=== PATIENT | male | born 1955 | race Caucasian/White ===

== ENCOUNTER 2020-01-01 15:07 | Inpatient (IN) | payer OTHER ==
--- NOTE | 2020-01-01 15:17 | PDOC ---
Rapid Medical Evaluation Chief Complaint: Pain, Acute Time Seen by Provider: 01/01/20 15:15 Medical Evaluation: Allergies Allergy/AdvReac Type Severity Reaction Status Date / Time Penicillins Allergy Unknown Verified 01/12/15 08:25 01/01/20 15:16 HPI: 64 y/o M w/ PMH of CAD PE: LLE Swelling ORDERS: Doppler Discharge Disposition - Diagnosis Swelling of lower leg - Discharge Dispostion Condition at time of disposition: Stable - Referrals - Patient Instructions - Post Discharge Activity
--- NOTE | 2020-01-01 16:11 | PDOC ---
History of Present Illness - General Chief Complaint: Pain, Acute Stated Complaint: R/O DVT Time Seen by Provider: 01/01/20 15:15 History Source: Patient Exam Limitations: No Limitations - History of Present Illness Initial Comments: 01/01/20 16:20 HISTORY OF PRESENT ILLNESS: 64-year-old male past medical history of CAD with 1 stent presents emergency department for evaluation of atraumatic left calf swelling starting today. Patient reports he woke up this morning his usual state of health but noted that his leg began to swell after breakfast. Patient was seen by his primary doctor who recommended he come to the emergency department for Doppler to rule out DVT. Patient denies any chest pain, shortness of breath, abdominal pain, nausea or vomiting. Triage heart rate is notable- 120 bpm. No recent travel or sick contacts. PAST MEDICAL HISTORY: See HPI SURGICAL HISTORY: Denies ALLERGIES: Penicillin REVIEW OF SYSTEMS General/Constitutional: Denies fever or chills. Denies weakness, weight change. HEENT: Denies change in vision. Denies ear pain or discharge. Denies sore throat. Cardiovascular: Denies chest pain or shortness of breath. Respiratory: Denies cough, wheezing, or hemoptysis. Gastrointestinal: Denies nausea, vomiting, diarrhea or constipation. Denies rectal bleeding. Genitourinary: Denies dysuria, frequency, or change in urination. Musculoskeletal: See HPI Skin and breasts: Denies rash or easy bruising. Neurologic: Denies headache, vertigo, loss of consciousness, or loss of sensation. Psychiatric: Denies depression or anxiety. Endocrine: Denies increased thirst. Denies abnormal weight change. Hematologic/Lymphatic: Denies anemia, easy bleeding, or history of blood clots. Allergic/Immunologic: Denies hives or skin allergy. Denies latex allergy. PHYSICAL EXAM General Appearance: Well-appearing, appropriately dressed. No apparent distr ess, no intoxication. Respiratory/Chest: Lungs CTAB. No shortness of breath, chest tenderness, resp iratory distress, accessory muscle use. No crackles, rales, rhonchi, stridor, wheezing, dullness Cardiovascular: Tachycardic with rate of 126. S1, S2. No JVD, murmur, bradycardia, tachycardia. Vascular Pulses: Dorsalis-Pedis (R): 2+, Dorsalis-Pedis (L): 2+ Musculoskeletal/Extremities: FROM of all extremities, normal capillary refill. Left calf swollen and tender to light palpation. Pain worse medially distal to left popliteal. Negative Homans sign. Neurovascularly intact. Integumentary: Erythematous with edema present to the left lower extremity worse over the calf. Past History - Medical History Allergies/Adverse Reactions: Allergies Allergy/AdvReac Type Severity Reaction Status Date / Time Penicillins Allergy Unknown Verified 01/12/15 08:25 Home Medications: Ambulatory Orders Aspirin [Ecotrin] 81 mg PO DAILY 01/09/15 Glimepiride 2 mg PO BID 01/09/15 Lisinopril [Prinivil] 2.5 mg PO DAILY 01/09/15 Multivit-Mins/Iron/Folic/Lycop [Centrum Men's Tablet] 1 tab PO DAILY 01/09/15 Simvastatin 40 mg PO DAILY 01/09/15 metFORMIN HCL [Metformin HCl] 1,000 mg PO BID 01/09/15 Meloxicam [Mobic] 15 mg PO DAILY 01/01/20 Pantoprazole Sodium [Protonix] 40 mg PO DAILY 01/01/20 Sitagliptin Phosphate [Januvia] 100 mg PO DAILY 01/01/20 Anemia: No Asthma: No Cancer: No Cardiac Disorders: Yes CVA: No COPD: No CHF: No Dementia: No Diabetes: Yes GI Disorders: No Disorders: No HTN: Yes Hypercholesterolemia: Yes Liver Disease: No Seizures: No Thyroid Disease: No - Surgical History Abdominal Surgery: No Appendectomy: No Cardiac Surgery: Yes (STENT 5 YRS AGO) Cholecystectomy: No Lung Surgery: No Neurologic Surgery: No Orthopedic Surgery: Yes (BILAT HIP) - Immunization History Immunization Up to Date: No - Psycho-Social/Smoking History Smoking History: Never smoked Have you smoked in the past 12 months: No Information on smoking cessation initiated: No - Substance Abuse Hx (Audit-C & DAST Scrn) How often the patient has a drink containing alcohol: Never Score: In Men: 4 or > Positive; In Women: 3 or > Positive: 0 Screen Result (Pos requires Nsg. Audit-10AR): Negative In the last yr the pt used illegal drug/Rx for NonMed reason: No Score: Yes response is considered Positive: 0 Screen Result (Positive result requires Nsg. DAST-10): Negative *Physical Exam - Vital Signs Last Vital Signs Temp Pulse Resp BP Pulse Ox 99.1 F 120 H 16 153/94 99 01/01/20 15:15 01/01/20 15:15 01/01/20 15:15 01/01/20 15:15 01/01/20 15:15 ED Treatment Course - LABORATORY CBC & Chemistry Diagram: 01/01/20 16:50 01/01/20 16:50 Medical Decision Making - Medical Decision Making 01/01/20 16:24 A/P: 64-year-old male with atraumatic left calf swelling starting today Heart rate is concerning. Possibly due to pain but as patient has swelling in his left lower extremity possibly PE. Labs Duplex Dopplers of lower extremities EKG No threshold for chest CT pending results of duplex Dopplers. 01/01/20 16:25 01/01/20 17:00 Rreliminary read of duplex Doppler reveals DVT in the left lower extremity. CT angiogram of the chest to rule out pulmonary embolism. 01/01/20 20:13 EKG sinus rhythm with rate of 105. QTC prolonged at 510 ms. Multiple T wave inversions present of bleeding aVL, V3, V4, V5. Multiple acute emboli are noted within several upper and lower lobe pulmonary arteries. No CT evidence of right heart strain. Extensive atherosclerotic coronary calcifications are noted. 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 01/01/20 20:38 Case was discussed with Dr. Cervantes of interventional radiology who states given the extent severity of the lower extremity DVT and now with bilateral PEs patient may need IVC filter placed patient has been transitioned to oral anticoagulation therapy. No need to open IR at this time for clot retrieval. 01/01/20 20:47 01/01/20 21:51 Case d/w Dr. Severino who accepts patient for [facility]. Discharge - Discharge Information Problems reviewed: Yes Clinical Impression/Diagnosis: Swelling of lower leg, DVT (deep venous thrombosis), Pulmonary embolism Condition: Guarded - Admission Yes - Follow up/Referral - Patient Discharge Instructions - Post Discharge Activity
[2020-01-01 17:35] LABS: BASO % 0.7 % (0-2.0); EOS % 1.1 % (0-4.5); HEMATOCRIT 41.3 % (35.4-49); HEMOGLOBIN 14.3 GM/dL (11.7-16.9); LYMPH % 8.9 % (8-40); MCH 29.9 pg (25.7-33.7); MCHC 34.6 g/dl (32.0-35.9); MEAN CELL VOLUME 86.5 fl (80-96); MEAN PLT VOLUME 8.6 fl (7.5-11.1); MONO % 6.2 % (3.8-10.2); NEUT % 83.1 % (42.8-82.8); PLATELET COUNT 156 K/MM3 (134-434); RBC 4.78 M/mm3 (4.00-5.60); RDW 13.6 % (11.9-15.9); WHITE BLOOD COUNT 8.4 K/mm3 (4.0-10.0)
[2020-01-01 17:44] LABS: INR 1.03 (0.83-1.09); PROTHROMBIN TIME (PATIENT) 12.1 SEC (9.7-13.0)
[2020-01-01 18:06] LABS: ALBUMIN 4.1 g/dl (3.4-5.0); ALK PHOS 96 U/L (45-117); ANION GAP 9 MMOL/L (8-16); BILIRUBIN,TOTAL 1.2 mg/dL (0.2-1); BLOOD UREA NITROGEN 19.6 mg/dL (7-18); CHLORIDE 105 mmol/L (98-107); CO2 26 mmol/L (21-32); GLUCOSE,RANDOM 239 mg/dL (74-106); POTASSIUM 4.4 mmol/L (3.5-5.1); SGOT/AST 7 U/L (15-37); SGPT/ALT 15 U/L (13-61); SODIUM 140 mmol/L (136-145); TOT PROT 7.4 g/dl (6.4-8.2)
[2020-01-01] MEDS ORDERED: LACTATED RINGERS SOLUTION 1000 ML INFUS.BAG IV ONE (19:57)
--- OUTSIDE RECORDS SUMMARY | 2020-01-01 19:59 | XMS ---
:1955 Author Organization [facility] Support Name Relationship Address Phone [employer] Unavailable [address] [facility] [address] UE Unavailable Unavailable Unavailable NISHI COLON MOTHER [address] [facility] [place] [address] Re-disclosure Warning The records that you are about to access may contain information from federally- assisted alcohol or drug abuse programs. If such information is present, then the following federally mandated warning applies: This information has been disclosed to you from records protected by federal confidentiality rules (42 CFR part 2). The federal rules prohibit you from making any further disclosure of this information unless further disclosure is expressly permitted by the written consent of the person to whom it pertains or as otherwise permitted by 42 CFR part 2. A general authorization for the release of medical or other information is NOT sufficient for this purpose. The Federal rules restrict any use of the information to criminally investigate or prosecute any alcohol or drug abuse patient.The records that you are about to access may contain highly sensitive health information, the redisclosure of which is protected by Article 27-F of the [facility] Public Health law. If you continue you may haveaccess to information: Regarding HIV / AIDS; Provided by facilities licensed or operated by the [facility] Office of Mental Health; or Provided by the [facility] Office for People With Developmental Disabilities. If such information is present, then the following [facility] mandated warning applies: This information has been disclosed to you from confidential records which are protected by state law. State law prohibits you from making any further disclosure of this information without the specific written consent of the person to whom it pertains, or as otherwise permitted by law. Any unauthorized further disclosure in violation of state law may result in a fine or prison sentence or both. A general authorization for the release of medical or other information is NOT sufficient authorization for further disclosure. Insurance Providers Payer name Policy type Policy ID Covered Covered alliance party's Policy P cheyanne / Coverage alliance party ID relationship to [employer] Inf ormation type colindres RAFIA W/C [id number] SP [id number] [place] [id number] SP [id number] [facility] [id number] SP [id number]
--- NOTE | 2020-01-01 20:05 | PDOC ---
*Physical Exam - Vital Signs Last Vital Signs Temp Pulse Resp BP Pulse Ox 99.1 F 120 H 16 153/94 99 01/01/20 15:15 01/01/20 15:15 01/01/20 15:15 01/01/20 15:15 01/01/20 15:15 ED Treatment Course - LABORATORY CBC & Chemistry Diagram: 01/01/20 16:50 01/01/20 16:50 - ADDITIONAL ORDERS Additional order review: Laboratory Results 01/01/20 01/01/20 16:50 16:50 PT with INR 12.10 INR 1.03 Sodium 140 Potassium 4.4 Chloride 105 Carbon Dioxide 26 Anion Gap 9 BUN 19.6 H Creatinine 1.0 Est GFR (CKD-EPI)AfAm 91.13 Est GFR (CKD-EPI)NonAf 78.63 Random Glucose 239 H Calcium 9.0 Total Bilirubin 1.2 H AST 7 L ALT 15 Alkaline Phosphatase 96 Creatine Kinase 60 Troponin I < 0.02 Total Protein 7.4 Albumin 4.1 01/01/20 16:50 RBC 4.78 MCV 86.5 MCHC 34.6 RDW 13.6 MPV 8.6 Neutrophils % 83.1 H Lymphocytes % 8.9 Monocytes % 6.2 Eosinophils % 1.1 Basophils % 0.7 Medical Decision Making - Medical Decision Making 01/01/20 20:04 a/p: 64yo male with acute onset of atraumatic calf pain -pt tachy -dvt on ultrasound -cta shows multiple PE -pt will need antiocoags, will need admission 01/01/20 20:06 extensive dvt on ultrasound 01/01/20 20:[address] Caro: recommends formal echo bedside echo does not show Right heart strain trop neg states poss filter placement tomorrow 01/01/20 22:06 pt admitted to [facility] pt updated and agrees with plan bedrest Discharge - Discharge Information Problems reviewed: Yes Clinical Impression/Diagnosis: Swelling of lower leg, DVT (deep venous thrombosis), Pulmonary embolism Condition: Guarded - Admission Yes - Follow up/Referral - Patient Discharge Instructions - Post Discharge Activity
[2020-01-01] MEDS ORDERED: HEPARIN NA (PORCINE) 5,000 UNITS/ML 1ML VIAL IVPUSH ONE (20:09)
[2020-01-01] MEDS ORDERED: HEPARIN NA (PORCINE) 5,000 UNITS/ML 1ML VIAL IVPUSH PRN (20:09)
[2020-01-01] MEDS ORDERED: HEPARIN NA (PORCINE) 5,000 UNITS/ML 1ML VIAL ONE (20:16)
[2020-01-01] MEDS ORDERED: HEPARIN INFUSION - 25,000 UNITS/500 ML INFUS.BAG IVPB ONE (20:18)
[2020-01-01] MEDS: HEPARIN INFUSION - 25,000 UNITS/500 ML INFUS.BAG IVPB SCH (20:33)
--- OUTSIDE RECORDS SUMMARY | 2020-01-01 21:52 | XMS ---
:1955 Author Organization [facility] Support Name Relationship Address Phone [employer] Unavailable [address] [facility] [place] [address] UE Unavailable Unavailable Unavailable NISHI COLON MOTHER [address] [facility] [place] [place] [address] Re-disclosure Warning The records that you are [...] is protected by Article 27-F of the [facility] Public Health law. If you continue you may haveaccess to information: Regarding HIV / AIDS; Provided by facilities licensed or operated by the [facility] Office of Mental Health; or Provided by the [facility] Office for People With Developmental Disabilities. If such information is present, then the following [facility] mandated warning applies: This information has [...] law may result in a fine or mcc sentence or both. A general authorization for the release of medical or other information is NOT sufficient authorization for further disclosure. Insurance Providers Payer name Policy type Policy ID Covered Covered alliance party's Policy P cheyanne / Coverage alliance party ID relationship to [employer] Inf ormation type colindres RAFIA W/C [id number] SP [id number] [place] [id number] SP [id number] [facility] [id number] SP [id number]
--- NOTE | 2020-01-01 23:25 | HP ---
CHIEF COMPLAINT: Leg swelling of one day duration PCP: Forrest Montoya HISTORY OF PRESENT ILLNESS: 64 YO man with Mhx of HTN, HLD, DM, CAD s/p one stent, rotator cuff tear, and cervical DJD (post trauma) who presented to ED from his PCP to rule out DVT. Pt reported that he noticed swelling of his lt leg this morning, mild pain in the calf when moving his foot, so he sought medical attention and visited his PMD. Pt was sent to ED to obtain US doppler and rule out DVT. At ED US doppler was done and revealed; extensive and nearly obstructive lt LE DVT extending from proximal lt superficial femoral vein through the popliteal vein into the posterior tibial vein with minimal or no flow seen. Due to the size of the DVT, CTa was obtained and showed Acute bilateral PE and extensive atherosclerotic CAD. Pt was admitted for further management and placed on heparin drip. Pt denied recent travel, report to be active at home, and denies any complains apart from leg swelling. 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 Denies chest pain, palpitations, no dyspnea, no dizziness. ER course was notable for: (1) imaging showed: Extensive DVT and bilateral PE (2) factor V leiden, protein C & S activity sent (3) heparin drip started Recent Travel: denies PAST MEDICAL HISTORY: see HPI PAST SURGICAL HISTORY: see HPI Social History: Smoking: denies Alcohol: occasional 1-2 beer/week Drugs: denies Allergies Penicillins Allergy (Unknown, Verified 01/12/15 08:25) REACTION A BABY HOME MEDICATIONS: Home Medications Medication Instructions Recorded Aspirin [Ecotrin] 81 mg PO DAILY 01/09/15 Glimepiride 2 mg PO BID 01/09/15 Lisinopril [Prinivil] 2.5 mg PO DAILY 01/09/15 Multivit-Mins/Iron/Folic/Lycop 1 tab PO DAILY 01/09/15 [Centrum Men's Tablet] Simvastatin 40 mg PO DAILY 01/09/15 metFORMIN HCL [Metformin HCl] 1,000 mg PO BID 01/09/15 Meloxicam [Mobic] 15 mg PO DAILY 01/01/20 Pantoprazole Sodium [Protonix] 40 mg PO DAILY 01/01/20 Sitagliptin Phosphate [Januvia] 100 mg PO DAILY 01/01/20 REVIEW OF SYSTEMS CONSTITUTIONAL: System reviewed, all with in normal limits HEENT: System reviewed, all with in normal limitss CARDIOVASCULAR: See HPI. RESPIRATORY: System reviewed, all with in normal limits GASTROINTESTINAL: System reviewed, all with in normal limits GENITOURINARY: System reviewed, all with in normal limits MUSCULOSKELETAL: Lt leg swelling, and mild pain. SKIN: System reviewed, all with in normal limits HEMATOLOGIC/IMMUNOLOGIC: System reviewed, all with in normal limits ENDOCRINE: System reviewed, all with in normal limits NEUROLOGIC: System reviewed, all with in normal limits PSYCHIATRIC: System reviewed, all with in normal limits PHYSICAL EXAMINATION Vital Signs - 24 hr 01/01/20 01/01/20 01/01/20 15:15 20:44 21:39 Temperature 99.1 F 98.5 F Pulse Rate 120 H Respiratory 16 22 H Rate Blood Pressure 153/94 O2 Sat by Pulse 99 98 98 Oximetry (%) GENERAL: Awake, alert, and fully oriented, in no acute distress. HEAD: Normal with no signs of trauma. EYES: Pupils equal, round and reactive to light, extraocular movements intact, sclera anicteric, conjunctiva clear. No lid lag. EARS, NOSE, THROAT: Ears normal, nares patent, oropharynx clear without exudates. Moist mucous membranes. NECK: Normal range of motion, supple without lymphadenopathy, JVD, or masses. LUNGS: Breath sounds equal, clear to auscultation bilaterally. No wheezes, and no crackles. No accessory muscle use. HEART: Regular rate and rhythm, normal S1 and S2 with systolic murmur, rub or gallop. ABDOMEN: Soft, nontender, not distended, normoactive bowel sounds, no guarding, no rebound, no masses. No hepatomegaly or splenomegaly. MUSCULOSKELETAL: Normal range of motion at all joints. No bony deformities or tenderness. No CVA tenderness. LOWER EXTREMITIES: 2+ pulses, warm, well-perfused. lt calf tenderness. + Harrell sign NEUROLOGICAL: Cranial nerves II-XII intact. Normal speech. Normal gait. PSYCHIATRIC: Cooperative. Good eye contact. Appropriate mood and affect. Laboratory Results - last 24 hr 01/01/20 01/01/20 01/01/20 16:50 16:50 16:50 WBC 8.4 RBC 4.78 Hgb 14.3 Hct 41.3 MCV 86.5 MCH 29.9 MCHC 34.6 RDW 13.6 Plt Count 156 MPV 8.6 Absolute Neuts (auto) 7.0 Neutrophils % 83.1 H Lymphocytes % 8.9 Monocytes % 6.2 Eosinophils % 1.1 Basophils % 0.7 Nucleated RBC % 0 PT with INR 12.10 INR 1.03 Sodium 140 Potassium 4.4 Chloride 105 Carbon Dioxide 26 Anion Gap 9 BUN 19.6 H Creatinine 1.0 Est GFR (CKD-EPI)AfAm 91.13 Est GFR (CKD-EPI)NonAf 78.63 Random Glucose 239 H Calcium 9.0 Total Bilirubin 1.2 H AST 7 L ALT 15 Alkaline Phosphatase 96 Creatine Kinase 60 Troponin I < 0.02 Total Protein 7.4 Albumin 4.1 ASSESSMENT/PLAN: 64 YO man with Mhx of HTN, HLD, DM, CAD s/p one stent, rotator cuff tear, and cervical DJD (post trauma) who presented to ED with leg swelling # Extensive DVT, Bilateral PE, unprovoked -hemodynamically stable -started on Heparin drip in ED, follow aPTT, Hg, Platelets -IR consulted for possible IVC filter -factor v leiden, protein C&S sent by ED prior to heparin -will defer the need for further hypercoagulation work up to HemOnc as pt is already on heparin drip now and results can be altered -ECHO to evaluate Rt side of heart -EKG reviewed, some ST/T wave abnormalities without baseline to compare, pt denies chest pain, troponin -ve -will trend troponin and EKG -tele monitoring -HemOnc consult -Pulmonary consult -IR consult HTN DM CAD rotator cuff tear Cervial disc disease DVT prophylaxis -pt already on heparin drip Family Medical History Family History: As Documented Family Hx Coronary Artery Disease: Father ( of [place] age 52) Visit type - Medication Review Med list reviewed for High Risk Meds patients 65 and older: Yes (yes) - Emergency Visit Emergency Visit: Yes ED Registration Date: 01/01/20 Care time: The patient presented to the Emergency Department on the above date and was hospitalized for further evaluation of their emergent condition. - New Patient This patient is new to me today: Yes Date on this admission: 01/01/20 - Critical Care Critical Care patient: No
[2020-01-02 00:52] VITALS: BMI 30.8
[2020-01-02] MEDS: HEPARIN INFUSION - 25,000 UNITS/500 ML INFUS.BAG IVPB SCH ×5 (03:28→22:21)
[2020-01-02] MEDS: INSULIN SLIDING SCALE (NOVOLOG) 1 VIAL SQ SCH ×4 (06:13→21:25)
[2020-01-02 06:42] LABS: BASO % 0.8 % (0-2.0); EOS % 4.2 % (0-4.5); HEMATOCRIT 36.6 % (35.4-49); HEMOGLOBIN 12.6 GM/dL (11.7-16.9); LYMPH % 21.7 % (8-40); MCH 29.2 pg (25.7-33.7); MCHC 34.6 g/dl (32.0-35.9); MEAN CELL VOLUME 84.5 fl (80-96); MEAN PLT VOLUME 8.4 fl (7.5-11.1); MONO % 7.2 % (3.8-10.2); NEUT % 66.1 % (42.8-82.8); PLATELET COUNT 132 K/MM3 (134-434); RBC 4.33 M/mm3 (4.00-5.60); RDW 13.6 % (11.9-15.9); WHITE BLOOD COUNT 6.1 K/mm3 (4.0-10.0)
[2020-01-02 06:54] LABS: INR 1.12 (0.83-1.09); PROTHROMBIN TIME (PATIENT) 13.2 SEC (9.7-13.0)
[2020-01-02 07:11] LABS: ALBUMIN 3.4 g/dl (3.4-5.0); BLOOD UREA NITROGEN 14.4 mg/dL (7-18); CALCIUM 8.3 mg/dL (8.5-10.1); CREATININE 0.8 mg/dL (0.55-1.3); MAGNESIUM 1.9 mg/dL (1.8-2.4); PHOSPHOROUS 3.4 mg/dL (2.5-4.9); POTASSIUM 3.8 mmol/L (3.5-5.1); TOT PROT 6.2 g/dl (6.4-8.2)
[2020-01-02 07:44] LABS: BILIRUBIN,TOTAL 1.3 mg/dL (0.2-1)
--- NOTE | 2020-01-02 08:17 | CONSULT ---
Consultation: REQUESTING PROVIDER: Dr. Kaiser CONSULT REQUEST: We have been asked to medically evaluate this patient for extensive DVT and PE. HISTORY OF PRESENT ILLNESS: 64 y/o M PMHx HTN, HLD, DM, CAD (s/p stent x 1) presents from his PCP to r/o DVT. Pt reports LLE swelling since yesterday morning accompanied by soreness with foot movement and LLE warmth. Patient visited his PCP who referred him to [facility] for Duplex which revealed nearly obstructive LLE DVT. Follow up CTA revealed acute b/l PE without evidence of right heart strain. Patient denies any chest pain or SOB. EKG revealed Sinus tachycardia (VR 105), QTc 510, TWI in V3- V5. Case was discussed with IR (as per ED documentation) who recommends possible IVC filter placement + Echo. Patient was started on Heparin GTT and admitted to Tele. During my interview this AM, patient feels his LE edema has improved. Denies any recent travel, sedentary lifestyle. Denies any FHx of VTE or Cancer. Patient mentions his lost colonoscopy was a few years ago and he was advised to return in 5 years but he is unsure what was found. Denies fevers, chills, nausea, vomiting, diarrhea, constipation, palpitations, dizziness, headache. 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 Additionally he has been on diasbility since sustaining a fall in August that resulted in rotator cuff tear at work. PMHx: As per HPI PSHx: Denies Social: Occassional EtOH, Denies tobacco or drugs FHx: Father with premature CAD (SD age 52) REVIEW OF SYSTEMS: As per HPI PHYSICAL EXAMINATION Vital Signs Temperature 97.3 F L 01/02/20 00:29 Pulse Rate 80 01/02/20 05:00 Respiratory Rate 20 01/02/20 05:00 Blood Pressure 141/71 01/02/20 05:00 O2 Sat by Pulse Oximetry (%) 95 01/02/20 05:00 GENERAL: A&Ox3, NAD HEAD: NCAT EYES: PERRL, EOMI ENT: Moist mucous membranes. NECK: No JVD LUNGS: Diminished breath sounds at the bases, No wheezes, no crackles HEART: Regular rate and rhythm, normal S1 and S2 ABDOMEN: Obese, Soft, nontender, not distended, + bowel sounds, no guarding, no rebound MUSCULOSKELETAL: No CVA tenderness. EXTREMITIES: 2+ pulses, LLE calf tenderness and edema, + Homman sign NEUROLOGICAL: Cranial nerves II-XII intact. Normal speech SKIN: Warm, dry Laboratory Last Values WBC 6.1 K/mm3 (4.0-10.0) 01/02/20 05:40 RBC 4.33 M/mm3 (4.00-5.60) 01/02/20 05:40 Hgb 12.6 GM/dL (11.7-16.9) 01/02/20 05:40 Hct 36.6 % (35.4-49) 01/02/20 05:40 MCV 84.5 fl (80-96) 01/02/20 05:40 MCH 29.2 pg (25.7-33.7) 01/02/20 05:40 MCHC 34.6 g/dl (32.0-35.9) 01/02/20 05:40 RDW 13.6 % (11.9-15.9) 01/02/20 05:40 Plt Count 132 K/MM3 (134-434) L 01/02/20 05:40 MPV 8.4 fl (7.5-11.1) 01/02/20 05:40 Absolute Neuts (auto) 4.0 K/mm3 (1.5-8.0) 01/02/20 05:40 Neutrophils % 66.1 % (42.8-82.8) D 01/02/20 05:40 Lymphocytes % 21.7 % (8-40) D 01/02/20 05:40 Monocytes % 7.2 % (3.8-10.2) 01/02/20 05:40 Eosinophils % 4.2 % (0-4.5) D 01/02/20 05:40 Basophils % 0.8 % (0-2.0) 01/02/20 05:40 Nucleated RBC % 0 % (0-0) 01/02/20 05:40 PT with INR 13.20 SEC (9.7-13.0) H 01/02/20 05:40 INR 1.12 (0.83-1.09) H 01/02/20 05:40 PTT (Actin FS) 46.6 SECONDS (25.2-36.5) H 01/02/20 02:20 Sodium 141 mmol/L (136-145) 01/02/20 05:40 Potassium 3.8 mmol/L (3.5-5.1) 01/02/20 05:40 Chloride 108 mmol/L (98-107) H 01/02/20 05:40 Carbon Dioxide 27 mmol/L (21-32) 01/02/20 05:40 Anion Gap 6 MMOL/L (8-16) L 01/02/20 05:40 BUN 14.4 mg/dL (7-18) 01/02/20 05:40 Creatinine 0.8 mg/dL (0.55-1.3) 01/02/20 05:40 Est GFR (CKD-EPI)AfAm 108.65 01/02/20 05:40 Est GFR (CKD-EPI)NonAf 93.74 01/02/20 05:40 POC Glucometer 137 UNITS (80-120) 01/02/20 05:41 Random Glucose 137 mg/dL (74-106) H 01/02/20 05:40 Calcium 8.3 mg/dL (8.5-10.1) L 01/02/20 05:40 Phosphorus 3.4 mg/dL (2.5-4.9) 01/02/20 05:40 Magnesium 1.9 mg/dL (1.8-2.4) 01/02/20 05:40 Total Bilirubin 1.3 mg/dL (0.2-1) H 01/02/20 05:40 AST 7 U/L (15-37) L 01/02/20 05:40 ALT 13 U/L (13-61) 01/02/20 05:40 Alkaline Phosphatase 73 U/L (45-117) 01/02/20 05:40 Creatine Kinase 60 U/L (26-308) 01/01/20 16:50 Troponin I < 0.02 ng/ml (0.00-0.05) 01/02/20 02:20 Total Protein 6.2 g/dl (6.4-8.2) L 01/02/20 05:40 Albumin 3.4 g/dl (3.4-5.0) 01/02/20 05:40 Triglycerides 122 mg/dL (0-150) 01/02/20 05:40 Cholesterol 165 mg/dL (50-200) 01/02/20 05:40 Total LDL Cholesterol 108 mg/dL (5-100) H 01/02/20 05:40 HDL Cholesterol 47 mg/dL (40-60) 01/02/20 05:40 TSH 2.78 uIU/ml (0.358-3.74) 01/02/20 05:40 Active Medications Acetaminophen (Tylenol -) 650 mg PO Q6H PRN PRN Reason: PAIN LEVEL 1-5 Aspirin (Ecotrin -) 81 mg PO DAILY [facility] Heparin Sodium (Porcine) (Heparin -) 2,300 unit 40 unit/kg (2300 unit) IVPUSH PRN PRN PRN Reason: For aPTT 35 to 45 seconds Heparin Sodium (Porcine) (Heparin -) 4,600 unit 80 unit/kg (4600 unit) IVPUSH PRN PRN PRN Reason: aPTT <35 seconds Heparin Sodium/Dextrose (Heparin Infusion -) 25,000 units in 500 mls @ 20.902 mls/hr IVPB TITR [facility]; Protocol Last Admin: 01/02/20 03:28 Dose: 18 units/kg/hr, 20.902 mls/hr Documented by: Insulin Aspart (Novolog Vial Sliding Scale -) 1 vial SQ ACHS [facility]; Protocol Last Admin: 01/02/20 06:13 Dose: Not Given Documented by: ASSESSMENT/PLAN: 64 y/o M PMHx HTN, HLD, DM, CAD (s/p stent x 1) presents from his PCP to r/o DVT, found to have extensive DVT and b/l PE on imaging, started on AC and admitted to tele. #B/L PE and extensive DVT -Etiology to be determined; Denies any travel, sedentary lifestyle, family or personal hx of Cancer or hypercoagulability however possible he had a high risk lesion found on colonoscopy and was advised to return in 5 years -Continue Heparin gtt, Follow Coags, PLT -Follow Hypercoagulability labs: Protien C, Protien S, Factor V Leiden -Echo to r/o R Heart Strain -Check BNP, Trend Trops -ED discussed case with IR for possible IVC placement -Hemodynamically stable for tele -Will need to obtain record for outpatient cancer screenings; Further hypercoagulability work up to be completed as an outpatient in addition to GI follow up for cancer screening -Vascular surgery consulted for extensive DVT Dispo: We will continue to follow the patient. Thank you for this consultative opportunity. Visit type - Medication Review Med list reviewed for High Risk Meds patients 65 and older: Yes - Emergency Visit Emergency Visit: Yes ED Registration Date: 01/01/20 Care time: The patient presented to the Emergency Department on the above date and was hospitalized for further evaluation of their emergent condition. - New Patient This patient is new to me today: Yes Date on this admission: 01/02/20 - Critical Care Critical Care patient: No ATTENDING PHYSICIAN STATEMENT I saw and evaluated the patient. I reviewed the resident's note and discussed the case with the resident. I agree with the resident's findings and plan as documented. SUBJECTIVE: OBJECTIVE: ASSESSMENT AND PLAN:
[2020-01-02 08:45] LABS: ACTIVATED PTT 39.7 SECONDS (25.2-36.5)
[2020-01-02] MEDS: ASPIRIN COATED 81 MG TABLET.EC PO SCH (09:44)
[2020-01-02] MEDS: HEPARIN NA (PORCINE) 5,000 UNITS/ML 1ML VIAL IVPUSH PRN ×2 (10:10→17:43)
[2020-01-02 11:49] LABS: N-TERMINAL BNP 632.4 pg/ml (5-125)
--- NOTE | 2020-01-02 12:18 | CONSULT ---
- Consultation REQUESTING PROVIDER: Vascular Surgery - Meng Marcos CONSULT REQUEST: We have been asked to surgically evaluate this patient for LLE DVT and bilateral PEs Hospitalist: Ramiro Montoya HPI: Called to eval 64 yo male w/ PMHx as noted below. Patient states he was reading the paper this morning when he happened to notice that his left leg was grossly swollen. Had increasing painwhen he ambulated. Went to see his PCP (Jan) who sent him to [facility] ED for evaluation. US doppler was performed in the ED and revealed extensive/nearly obstructive LLE DVT extending from proximal SFV through the popliteal vein into the posterior tibial vein with minimal or no flow seen. Due to size and extent of DVT a Chest CT performed and bilateral PEs identified. Patient with no contraindications to begin AC. Bolused Heparin and started on drip. Patient admits to prolonged sitting. By his own admission, his LE swelling has decreased significantly since admit to hospital. Denies n/v/f/c, CP, palpitations, SOB, DEVLIN, cough, hemoptysis or trauma * Patient recently seen by his B2B Sales Executive 12/30/19 for pre-op clearance for rotator cuff repair and he was "cleared for surgery". PMHx: HTN, HLD, DM, CAD, Rotator cuff tear, Cervical DJD PSHx: Coronary Stent x1 Home Meds Aspirin [Ecotrin] 81 mg PO DAILY 01/09/15 Glimepiride 2 mg PO BID 01/09/15 Lisinopril [Prinivil] 2.5 mg PO DAILY 01/09/15 Multivit-Mins/Iron/Folic/Lycop 1 tab PO DAILY 01/09/15 [Centrum Men's Tablet] Simvastatin 40 mg PO DAILY 01/09/15 metFORMIN HCL [Metformin HCl] 1,000 mg PO BID 01/09/15 Meloxicam [Mobic] 15 mg PO DAILY 01/01/20 Pantoprazole Sodium [Protonix] 40 mg PO DAILY 01/01/20 Sitagliptin Phosphate [Januvia] 100 mg PO DAILY 01/01/20 Allergies: PCNs ROS: 12 systems reviewed and considered negative except for what's contained in the HPI. PE: GENERAL: A&O. NAD HEAD: Normal with no signs of trauma. EYES: PERRL, sclera anicteric, conjunctiva clear. NECK: Normal ROM, supple without lymphadenopathy, JVD, or masses. LUNGS: Unlabored respirations onroom air. CTA bilat. HEART: RRR ABD: Soft, nontender, not distended, normoactive bowel sounds UE: 2+ pulses, warm, well-perfused. No cyanosis. Cap refill <2 seconds. No peripheral edema. LE: RLE unremarkable. LLE swelling from prox tibia down to ankle. +Calf tenderness. +Emely's. DP/PT 2+. Warm. NEUROLOGICAL: Normal speech, gait not observed. PSYCH: Cooperative. Good eye contact. Appropriate mood and affect. Last Vital Signs Temp Pulse Resp BP Pulse Ox 98.4 F 78 20 144/74 96 01/02/20 10:00 01/02/20 10:00 01/02/20 10:00 01/02/20 10:00 01/02/20 10:00 CBC, BMP 01/02/20 05:40 01/02/20 05:40 INR, PTT INR 1.12 (0.83-1.09) H 01/02/20 05:40 Serology Test 01/01/20 23:05 COVID-19 (JU) Pending Laboratory Test 01/02/20 05:40 Factor V Leiden Pending A/P: 64 yo male admitted with unprovoked LLE DVT and bilateral PEs. -No contraindications to AC. Will need to continue AC as out-patient for the next 6 months. -Cont Hep gtt -Monitor PT/PTT/INR -If bleeding develops, will need IVC Filter -Cont medical management -No surgical intervention -Covid pending; Strict Isolation precautions -HemeOnc f/u -Factor V Leiden/Protein C&S pending Above plan discussed with Dr. Marcos and agrees. Problem List - Problems (1) Bilateral pulmonary embolism Code(s): I26.99 - OTHER PULMONARY EMBOLISM WITHOUT ACUTE COR PULMONALE (2) Left leg DVT Code(s): I82.402 - ACUTE EMBOLISM AND THOMBOS UNSP DEEP VEINS OF L LOW EXTREM (3) Diabetes Code(s): E11.9 - TYPE 2 DIABETES MELLITUS WITHOUT COMPLICATIONS (4) HTN (hypertension) Code(s): I10 - ESSENTIAL (PRIMARY) HYPERTENSION (5) CAD (coronary artery disease) Code(s): I25.10 - ATHSCL HEART DISEASE OF [place] CORONARY ARTERY W/O ANG PCTRS (6) HLD (hyperlipidemia) Code(s): E78.5 - HYPERLIPIDEMIA, UNSPECIFIED Visit type - Case Type Case Type: ED Admission - Emergency Emergency Visit: Yes ED Registration Date: 01/01/20 Care time: The patient presented to the Emergency Department on the above date and was hospitalized for further evaluation of their emergent condition. - New patient This patient is new to me today: Yes Date on this admission: 01/02/20
--- NOTE | 2020-01-02 14:04 | EKG ---
Test Reason : Blood Pressure : / mmHG Vent. Rate : 105 BPM Atrial Rate : 105 BPM P-R Int : 138 ms QRS Dur : 146 ms QT Int : 386 ms P-R-T Axes : 066 000 023 degrees QTc Int : 510 ms SINUS TACHYCARDIA POSSIBLE LEFT ATRIAL ENLARGEMENT RIGHT BUNDLE BRANCH BLOCK ANTEROSEPTAL INFARCT , AGE UNDETERMINED T WAVE ABNORMALITY, CONSIDER LATERAL ISCHEMIA ABNORMAL ECG WHEN COMPARED WITH ECG OF 18-SEP-2008 16:46, RIGHT BUNDLE BRANCH BLOCK IS NOW PRESENT ANTEROSEPTAL INFARCT IS NOW PRESENT Confirmed by ALCIRA VALENZUELA MD ([id number]) on 01/02/2020 2:04:44 PM Referred By: Confirmed By:ALCIRA VALENZUELA MD
--- NOTE | 2020-01-02 14:04 | EKG ---
Test Reason : Blood Pressure : / mmHG Vent. Rate : 082 BPM Atrial Rate : 082 BPM P-R Int : 134 ms QRS Dur : 152 ms QT Int : 430 ms P-R-T Axes : 043 -06 006 degrees QTc Int : 502 ms NORMAL SINUS RHYTHM RIGHT BUNDLE BRANCH BLOCK SEPTAL INFARCT (CITED ON OR BEFORE 01-JAN-2020) ABNORMAL ECG WHEN COMPARED WITH ECG OF 01-JAN-2020 16:55, SERIAL CHANGES OF SEPTAL INFARCT PRESENT Confirmed by ALCIRA VALENZUELA MD ([id number]) on 01/02/2020 2:04:27 PM Referred By: Confirmed By:ALCIRA VALENZUELA MD
--- NOTE | 2020-01-02 16:14 | PN ---
Progress Note, Physician Chief Complaint: EVENTS AND NOTES REVIEWED DENIES CHEST PAIN SOB - Current Medication List Current Medications: Active Medications Acetaminophen (Tylenol -) 650 mg PO Q6H PRN PRN Reason: PAIN LEVEL 1-5 Aspirin (Ecotrin -) 81 mg PO DAILY [facility] Last Admin: 01/02/20 09:44 Dose: 81 mg Documented by: Heparin Sodium (Porcine) (Heparin -) 2,300 unit 40 unit/kg (2300 unit) IVPUSH PRN PRN PRN Reason: For aPTT 35 to 45 seconds Heparin Sodium (Porcine) (Heparin -) 4,600 unit 80 unit/kg (4600 unit) IVPUSH PRN PRN PRN Reason: aPTT <35 seconds Last Admin: 01/02/20 10:10 Dose: 4,120 unit Documented by: Heparin Sodium/Dextrose (Heparin Infusion -) 25,000 units in 500 mls @ 20.902 mls/hr IVPB TITR [facility]; Protocol Last Admin: 01/02/20 10:07 Dose: 21.62 units/kg/hr, 25.1 mls/hr Documented by: Insulin Aspart (Novolog Vial Sliding Scale -) 1 vial SQ [facility]; Protocol Last Admin: 01/02/20 12:04 Dose: Not Given Documented by: - Objective Vital Signs: Vital Signs Temperature 98.2 F 01/02/20 13:58 Pulse Rate 79 01/02/20 13:58 Respiratory Rate 01/02/20 10:00 Blood Pressure 137/67 01/02/20 13:58 O2 Sat by Pulse Oximetry (%) 96 01/02/20 10:00 Constitutional: Yes: Mild Distress Cardiovascular: Yes: Regular Rate and Rhythm Respiratory: Yes: WNL Gastrointestinal: Yes: WNL Genitourinary: Yes: Incontinence Musculoskeletal: Yes: Muscle Weakness Edema: Yes Edema: LLE: 2+ Peripheral Pulses WNL: Yes Integumentary: Yes: Erythema Wound/Incision: Yes: Clean/Dry Neurological: Yes: WNL ...Motor Strength: LLE Psychiatric: Yes: WNL Labs: CBC, BMP 01/02/20 05:40 01/02/20 05:40 INR, PTT INR 1.12 (0.83-1.09) H 01/02/20 05:40 Problem List - Problems (1) CAD (coronary artery disease) Code(s): I25.10 - ATHSCL HEART DISEASE OF [place] CORONARY ARTERY W/O ANG PCTRS (2) Diabetes Code(s): E11.9 - TYPE 2 DIABETES MELLITUS WITHOUT COMPLICATIONS (3) HLD (hyperlipidemia) Code(s): E78.5 - HYPERLIPIDEMIA, UNSPECIFIED (4) HTN (hypertension) Code(s): I10 - ESSENTIAL (PRIMARY) HYPERTENSION (5) Left leg DVT Code(s): I82.402 - ACUTE EMBOLISM AND THOMBOS UNSP DEEP VEINS OF L LOW EXTREM (6) Bilateral pulmonary embolism Code(s): I26.99 - OTHER PULMONARY EMBOLISM WITHOUT ACUTE COR PULMONALE Assessment/Plan IV HEPARIN WILL NEED DVT FILTER IVC PULM/HEM CONSULT TRANSITION TO [facility] PO OOB TO CHAIR CHECK CBC STOOL GUAC HEME WORKUP ON CARDIOLIPIN/FACTOR V
[2020-01-02] MEDS: metFORMIN HCL 500 MG TABLET (FP) PO SCH (16:52)
--- NOTE | 2020-01-02 16:54 | ECHO ---
Name: DARCY COLON Exam:Adult Echocardiogram Study Date: 01/02/2020 03:32 PM Age: 64 yrs Reason For Study: No indication given. Height: 72 in Weight: 128 lb BSA: 1.8 m2 MMode/2D Measurements & Calculations RVDd: 3.7 cm Ao root diam: 3.3 cm IVSd: 0.98 cm LA dimension: 3.5 cm LVIDd: 5.7 cm ACS: 1.5 cm LVIDs: 4.7 cm LVPWd: 0.90 cm EDV(Teich): 159.3 ml EPSS: 1.9 cm ESV(Teich): 100.6 ml LVOT diam: 2.0 cm LVLd ap4: 7.9 cm EDV(MOD-sp4): 147.0 ml LVLs ap4: 6.5 cm ESV(MOD-sp4): 81.0 ml SV(MOD-sp4): 66.0 ml TAPSE: 2.3 cm RV S Shant: 19.5 cm/sec Doppler Measurements & Calculations MV E max shant: 82.1 cm/sec Ao V2 max: 172.4 cm/sec MV A max shant: 125.2 cm/sec Ao max P.9 mmHg MV E/A: 0.66 Ao V2 mean: 109.5 cm/sec MV dec time: 0.26 sec Ao mean P.7 mmHg Ao V2 VTI: 30.1 cm MADELEINE(I,D): 2.2 cm2 MADELEINE(V,D): 1.9 cm2 LV V1 max P.2 mmHg SV(LVOT): 64.7 ml LV V1 mean P.4 mmHg LV V1 max: 103.0 cm/sec LV V1 mean: 72.4 cm/sec LV V1 VTI: 20.9 cm TR max shant: 216.7 cm/sec PA V2 max: 78.7 cm/sec TR max P.0 mmHg PA max P.5 mmHg PA acc slope: 708.4 cm/sec2 PA acc time: 0.11 sec Med Peak E' Shant: 4.5 cm/sec PA pr(Accel): 29.9 mmHg Med E/e': 18.3 Lat Peak E' Shant: 6.8 cm/sec Lat E/e': 12.0 Procedure A two-dimensional transthoracic echocardiogram with color flow and Doppler was performed. The study w as technically difficult with many images being suboptimal in quality. Left Ventricle The left ventricle is normal in size. Left ventricular systolic function is moderately reduced. Eject ion Fraction = 40-45%. There is moderate global hypokinesis of the left ventricle. Right Ventricle The right ventricle is normal in size and function. Atria Normal left and right atrial size and function. Mitral Valve There is no mitral regurgitation noted. Tricuspid Valve There is trace tricuspid regurgitation. There was insufficient TR detected to calculate RV systolic p ressure. Aortic Valve No hemodynamically significant valvular aortic stenosis. No aortic regurgitation is present. Pulmonic Valve There is no pulmonic valvular regurgitation. Great Vessels The aortic root is normal size. Pericardium/Pleura There is no pericardial effusion. Interpretation Summary The study was technically difficult with many images being suboptimal in quality. Left ventricular systolic function is moderately reduced. There is moderate global hypokinesis of the left ventricle. The left ventricle is normal in size. The right ventricle is normal in size and function. There is trace tricuspid regurgitation. MD Dereje Dunbar 01/02/2020 04:53 PM
--- NOTE | 2020-01-02 16:57 | PN ---
Teaching Attending Note Name of Resident: Elissa Alberto ATTENDING PHYSICIAN STATEMENT I saw and evaluated the patient. I reviewed the resident's note and discussed the case with the resident. I agree with the resident's findings and plan as documented. 64M HTN, HLD, DM presented from PCP for left leg edema and pain in calf. Doppler notable for extensive and nearly obstructive LE left DVT extending from proximal LT superficial femoral vein through the popliteal vein into posterior tibial vein with minimal/no flow to be seen. CTA notable for b/l PE; he was started on heparin gtt and admitted for further workup. At this time would not recommend hypercoagulability workup as it will not slubber frame changer and patient does not have any extensive family hx of clotting disorders. Would also pursue outpatient GI follow up as patient has missed his screening cscope and should be up to date on cancer screening. He should be seen by vascular surgery as his clot burden in left lower extremity is high. Can be eventually transitioned to DOAC once no acute interventions are planned. Will need anticoagulation for 3-6months.
[2020-01-02] MEDS ORDERED: PT OWN MED DRAWER 7, Y5N ONE (18:00)
[2020-01-02] MEDS ORDERED: HEPARIN NA (PORCINE) 5,000 UNITS/ML 1ML VIAL IVPUSH PRN ×4 (18:26→18:42)
[2020-01-02] MEDS ORDERED: HEPARIN INFUSION - 25,000 UNITS/500 ML INFUS.BAG IVPB SCH (18:30)
[2020-01-02] MEDS: ACETAMINOPHEN 325 MG TABLET (FP) PO PRN (19:52)
[2020-01-02] MEDS ORDERED: diphenhydrAMINE HCL 25 MG CAPSULE (FP) PO ONE (19:52)
[2020-01-02] MEDS: ATORVASTATIN CA 20 MG TABLET (FP) PO SCH (21:25)
[2020-01-03] MEDS ORDERED: PT OWN MED DRAWER 7, Y5N ONE (06:19)
[2020-01-03] MEDS: metFORMIN HCL 500 MG TABLET (FP) PO SCH (06:20)
[2020-01-03] MEDS: INSULIN SLIDING SCALE (NOVOLOG) 1 VIAL SQ SCH ×4 (06:20→22:15)
[2020-01-03] MEDS: GLIMEPIRIDE 2 MG TABLET PO SCH (06:22)
[2020-01-03 06:53] LABS: HEMATOCRIT 36.3 % (35.4-49); HEMOGLOBIN 12.6 GM/dL (11.7-16.9); MCH 29.2 pg (25.7-33.7); MCHC 34.7 g/dl (32.0-35.9); MEAN CELL VOLUME 84.1 fl (80-96); MEAN PLT VOLUME 8.3 fl (7.5-11.1); PLATELET COUNT 130 K/MM3 (134-434); RBC 4.31 M/mm3 (4.00-5.60); RDW 13.5 % (11.9-15.9); WHITE BLOOD COUNT 4.7 K/mm3 (4.0-10.0)
--- NOTE | 2020-01-03 07:26 | PN ---
Progress Note, Physician - Current Medication List Current Medications: Active Medications Acetaminophen (Tylenol -) 650 mg PO Q6H PRN PRN Reason: PAIN LEVEL 1-5 Last Admin: 01/02/20 19:52 Dose: 650 mg Documented by: Aspirin (Ecotrin -) 81 mg PO DAILY [facility] Last Admin: 01/02/20 09:44 Dose: 81 mg Documented by: Atorvastatin Calcium (Lipitor -) 20 mg PO HS [facility] Last Admin: 01/02/20 21:25 Dose: 20 mg Documented by: Glimepiride (Amaryl -) 2 mg PO DAILY@0700 [facility] Last Admin: 01/03/20 06:22 Dose: 2 mg Documented by: Heparin Sodium (Porcine) (Heparin -) 4,100 unit 40 unit/kg (4100 unit) IVPUSH PRN PRN PRN Reason: For aPTT 35 to 45 seconds Heparin Sodium (Porcine) (Heparin -) 8,300 unit 80 unit/kg (8300 unit) IVPUSH PRN PRN PRN Reason: aPTT <35 seconds Heparin Sodium/Dextrose (Heparin Infusion -) 25,000 units in 500 mls @ 37.166 mls/hr IVPB TITR [facility]; Protocol Last Admin: 01/02/20 22:21 Dose: 13.27 units/kg/hr, 27.4 mls/hr Documented by: Insulin Aspart (Novolog Vial Sliding Scale -) 1 vial SQ ACHS [facility]; Protocol Last Admin: 01/03/20 06:20 Dose: Not Given Documented by: Lisinopril (Prinivil) 2.5 mg PO DAILY [facility] Metformin HCl (Glucophage -) 500 mg PO BID@0700,1630 [facility] Last Admin: 01/03/20 06:20 Dose: Not Given Documented by: Pantoprazole Sodium (Protonix -) 40 mg PO DAILY [facility] Sitagliptin Phosphate (Januvia -) 100 mg PO DAILY@0700 [facility] Last Admin: 01/03/20 06:22 Dose: 100 mg Documented by: - Objective Vital Signs: Vital Signs Temperature 98.2 F 01/02/20 21:00 Pulse Rate 71 01/03/20 05:00 Respiratory Rate 20 01/03/20 05:00 Blood Pressure 131/63 01/03/20 05:00 O2 Sat by Pulse Oximetry (%) 97 01/02/20 19:54 Labs: CBC, BMP 01/02/20 05:40 INR, PTT INR 1.12 (0.83-1.09) H 01/02/20 05:40 Problem List - Problems (1) CAD (coronary artery disease) Code(s): I25.10 - ATHSCL HEART DISEASE OF [place] CORONARY ARTERY W/O ANG PCTRS (2) Diabetes Code(s): E11.9 - TYPE 2 DIABETES MELLITUS WITHOUT COMPLICATIONS (3) HLD (hyperlipidemia) Code(s): E78.5 - HYPERLIPIDEMIA, UNSPECIFIED (4) HTN (hypertension) Code(s): I10 - ESSENTIAL (PRIMARY) HYPERTENSION (5) Left leg DVT Code(s): I82.402 - ACUTE EMBOLISM AND THOMBOS UNSP DEEP VEINS OF L LOW EXTREM (6) Bilateral pulmonary embolism Code(s): I26.99 - OTHER PULMONARY EMBOLISM WITHOUT ACUTE COR PULMONALE
[2020-01-03] MEDS: LISINOPRIL 5 MG TABLET PO SCH (09:10)
[2020-01-03] MEDS: PANTOPRAZOLE 40 MG TABLET PO SCH (09:10)
[2020-01-03] MEDS: ASPIRIN COATED 81 MG TABLET.EC PO SCH (09:13)
--- NOTE | 2020-01-03 11:02 | PN ---
Progress Note, Physician Chief Complaint: AWAKE ALERT FEELS PAIN IN LEFT LEG BETTER DENIES SOB - Current Medication List Current Medications: Active Medications Acetaminophen (Tylenol -) 650 mg PO Q6H PRN PRN Reason: PAIN LEVEL 1-5 Last Admin: 01/02/20 19:52 Dose: 650 mg Documented by: Aspirin (Ecotrin -) 81 mg PO DAILY [facility] Last Admin: 01/03/20 09:13 Dose: 81 mg Documented by: Atorvastatin Calcium (Lipitor -) 20 mg PO HS [facility] Last Admin: 01/02/20 21:25 Dose: 20 mg Documented by: Glimepiride (Amaryl -) 2 mg PO DAILY@0700 [facility] Last Admin: 01/03/20 06:22 Dose: 2 mg Documented by: Heparin Sodium (Porcine) (Heparin -) 4,100 unit 40 unit/kg (4100 unit) IVPUSH PRN PRN PRN Reason: For aPTT 35 to 45 seconds Heparin Sodium (Porcine) (Heparin -) 8,300 unit 80 unit/kg (8300 unit) IVPUSH PRN PRN PRN Reason: aPTT <35 seconds Heparin Sodium/Dextrose (Heparin Infusion -) 25,000 units in 500 mls @ 37.166 mls/hr IVPB TITR [facility]; Protocol Last Admin: 01/02/20 22:21 Dose: 13.27 units/kg/hr, 27.4 mls/hr Documented by: Insulin Aspart (Novolog Vial Sliding Scale -) 1 vial SQ ACHS [facility]; Protocol Last Admin: 01/03/20 06:20 Dose: Not Given Documented by: Lisinopril (Prinivil) 2.5 mg PO DAILY [facility] Last Admin: 01/03/20 09:10 Dose: 2.5 mg Documented by: Metformin HCl (Glucophage -) 500 mg PO BID@0700,1630 [facility] Last Admin: 01/03/20 06:20 Dose: Not Given Documented by: Pantoprazole Sodium (Protonix -) 40 mg PO DAILY [facility] Last Admin: 01/03/20 09:10 Dose: 40 mg Documented by: Sitagliptin Phosphate (Januvia -) 100 mg PO DAILY@0700 [facility] Last Admin: 01/03/20 06:22 Dose: 100 mg Documented by: - Objective Vital Signs: Vital Signs Temperature 98 F 01/03/20 09:00 Pulse Rate 110 H 01/03/20 09:00 Respiratory Rate 01/03/20 09:00 Blood Pressure 155/87 01/03/20 09:00 O2 Sat by Pulse Oximetry (%) 98 01/03/20 09:00 Constitutional: Yes: No Distress Cardiovascular: Yes: Regular Rate and Rhythm Respiratory: Yes: WNL Gastrointestinal: Yes: WNL Genitourinary: Yes: WNL Extremities: Yes: Other Edema: LLE: 2+ Integumentary: Yes: Erythema Neurological: Yes: WNL Labs: CBC, BMP 01/03/20 06:10 01/02/20 05:40 INR, PTT INR 1.12 (0.83-1.09) H 01/02/20 05:40 Problem List - Problems (1) CAD (coronary artery disease) Code(s): I25.10 - ATHSCL HEART DISEASE OF [place] CORONARY ARTERY W/O ANG PCTRS (2) Diabetes Code(s): E11.9 - TYPE 2 DIABETES MELLITUS WITHOUT COMPLICATIONS (3) HLD (hyperlipidemia) Code(s): E78.5 - HYPERLIPIDEMIA, UNSPECIFIED (4) HTN (hypertension) Code(s): I10 - ESSENTIAL (PRIMARY) HYPERTENSION (5) Left leg DVT Code(s): I82.402 - ACUTE EMBOLISM AND THOMBOS UNSP DEEP VEINS OF L LOW EXTREM (6) Bilateral pulmonary embolism Code(s): I26.99 - OTHER PULMONARY EMBOLISM WITHOUT ACUTE COR PULMONALE Assessment/Plan IV HEPARIN WILL NEED DVT FILTER IVC PULM/HEM CONSULT TRANSITION TO [facility] OOB TO CHAIR CHECK CBC STOOL GUAC HEME WORKUP ON CARDIOLIPIN/FACTOR V
--- NOTE | 2020-01-03 13:15 | PN ---
Progress Note (short form) - Note Progress Note: 64 M, HTN, HLD, DM, CAD (s/p stent x 1). Admitted via the ER due to LLE swelling x 1 to 2 days. Reports he lost his job and his activity level has been lower than normal but has still been relatively active. Found to have a LLE DVT and bilateral PE. No personal or family history of VTE. No travel history or immobilization. ECH: No evidence of right heart strain. PSHx: Denies Social: Occassional EtOH, Denies tobacco or drugs FHx: Father with premature CAD (NE age 52) Intake & Output 12/31/19 01/01/20 01/02/20 01/03/20 23:59 23:59 23:59 23:59 Intake Total 1217 324 Output Total 940 Balance 277 324 Weight 128 lb 227 lb 9.6 oz 225 lb 3.2 oz Last Vital Signs Temp Pulse Resp BP Pulse Ox 98 F 110 H 20 155/87 98 01/03/20 09:00 01/03/20 09:00 01/03/20 09:00 01/03/20 09:00 01/03/20 09:00 Active Medications Acetaminophen (Tylenol -) 650 mg PO Q6H PRN PRN Reason: PAIN LEVEL 1-5 Last Admin: 01/02/20 19:52 Dose: 650 mg Documented by: Aspirin (Ecotrin -) 81 mg PO DAILY [facility] Last Admin: 01/03/20 09:13 Dose: 81 mg Documented by: Atorvastatin Calcium (Lipitor -) 20 mg PO HS [facility] Last Admin: 01/02/20 21:25 Dose: 20 mg Documented by: Glimepiride (Amaryl -) 2 mg PO DAILY@0700 [facility] Last Admin: 01/03/20 06:22 Dose: 2 mg Documented by: Heparin Sodium (Porcine) (Heparin -) 4,100 unit 40 unit/kg (4100 unit) IVPUSH PRN PRN PRN Reason: For aPTT 35 to 45 seconds Heparin Sodium (Porcine) (Heparin -) 8,300 unit 80 unit/kg (8300 unit) IVPUSH PRN PRN PRN Reason: aPTT <35 seconds Heparin Sodium/Dextrose (Heparin Infusion -) 25,000 units in 500 mls @ 37.166 mls/hr IVPB TITR [facility]; Protocol Last Admin: 01/02/20 22:21 Dose: 13.27 units/kg/hr, 27.4 mls/hr Documented by: Insulin Aspart (Novolog Vial Sliding Scale -) 1 vial SQ ACHS [facility]; Protocol Last Admin: 01/03/20 12:01 Dose: Not Given Documented by: Lisinopril (Prinivil) 2.5 mg PO DAILY [facility] Last Admin: 01/03/20 09:10 Dose: 2.5 mg Documented by: Metformin HCl (Glucophage -) 500 mg PO BID@0700,1630 [facility] Last Admin: 01/03/20 06:20 Dose: Not Given Documented by: Pantoprazole Sodium (Protonix -) 40 mg PO DAILY [facility] Last Admin: 01/03/20 09:10 Dose: 40 mg Documented by: Sitagliptin Phosphate (Januvia -) 100 mg PO DAILY@0700 [facility] Last Admin: 01/03/20 06:22 Dose: 100 mg Documented by: GENERAL: A&Ox3, NAD HEAD: NCAT EYES: PERRL, EOMI ENT: Moist mucous membranes. NECK: No JVD LUNGS: Diminished breath sounds at the bases, No wheezes, no crackles HEART: Regular rate and rhythm, normal S1 and S2 ABDOMEN: Obese, Soft, nontender, not distended, + bowel sounds, no guarding, no rebound MUSCULOSKELETAL: No CVA tenderness. EXTREMITIES: 2+ pulses, LLE calf tenderness and edema, + Homman sign NEUROLOGICAL: Non-focal SKIN: Warm, dry Laboratory Results - last 24 hr 01/01/20 01/02/20 01/02/20 23:05 05:40 15:45 WBC RBC Hgb Hct MCV MCH MCHC RDW Plt Count MPV PTT (Actin FS) 39.7 H POC Glucometer Hemoglobin A1c % 7.0 H COVID-19 (JU) Not detected 01/02/20 01/02/20 01/02/20 17:34 20:54 21:10 WBC RBC Hgb Hct MCV MCH MCHC RDW Plt Count MPV PTT (Actin FS) 66.4 H POC Glucometer 127 208 Hemoglobin A1c % COVID-19 (JU) 01/03/20 01/03/20 01/03/20 05:50 06:10 06:10 WBC 4.7 RBC 4.31 Hgb 12.6 Hct 36.3 MCV 84.1 MCH 29.2 MCHC 34.7 RDW 13.5 Plt Count 130 L MPV 8.3 PTT (Actin FS) 47.2 H POC Glucometer 172 Hemoglobin A1c % COVID-19 (JU) 01/03/20 01/03/20 11:56 12:18 WBC RBC Hgb Hct MCV MCH MCHC RDW Plt Count MPV PTT (Actin FS) 45.9 H POC Glucometer 124 Hemoglobin A1c % COVID-19 (JU) ASSESSMENT/PLAN: Acute LLE DVT & Bilateral PE : Seems unprovoked. There is no evidence of Right heart strain on CT imaging or ECHO HTN HLD DM CAD (s/p stent x 1) As no Right heart strain: Little benefit from IR guided procedures Noted IV Heparin Can start DOAC Will need age appropriate cancer screening No smoking Heme evaluation noted Will follow Thank you. Dr Singletary
[2020-01-03] MEDS ORDERED: INSULIN (NOVOLOG) ASPART 100 UNITS/ML 10ML VIAL ONE (17:32)
[2020-01-03] MEDS: HEPARIN INFUSION - 25,000 UNITS/500 ML INFUS.BAG IVPB SCH (19:45)
[2020-01-03] MEDS: ATORVASTATIN CA 20 MG TABLET (FP) PO SCH (21:36)
[2020-01-04] MEDS ORDERED: PT OWN MED DRAWER 7, Y5N ONE ×2 (06:32→16:04)
[2020-01-04] MEDS: GLIMEPIRIDE 2 MG TABLET PO SCH (06:57)
[2020-01-04] MEDS: INSULIN SLIDING SCALE (NOVOLOG) 1 VIAL SQ SCH ×3 (06:58→22:50)
--- NOTE | 2020-01-04 07:12 | PN ---
Progress Note, Physician History of Present Illness: pulmonary alert,comfortable oob-chair,-sob,less L lower ext pain - Current Medication List Current Medications: Active Medications Acetaminophen (Tylenol -) 650 mg PO Q6H PRN PRN Reason: PAIN LEVEL 1-5 Last Admin: 01/02/20 19:52 Dose: 650 mg Documented by: Aspirin (Ecotrin -) 81 mg PO DAILY [facility] Last Admin: 01/03/20 09:13 Dose: 81 mg Documented by: Atorvastatin Calcium (Lipitor -) 20 mg PO HS [facility] Last Admin: 01/03/20 21:36 Dose: 20 mg Documented by: Glimepiride (Amaryl -) 2 mg PO DAILY@0700 [facility] Last Admin: 01/04/20 06:57 Dose: 2 mg Documented by: Heparin Sodium (Porcine) (Heparin -) 4,100 unit 40 unit/kg (4100 unit) IVPUSH PRN PRN PRN Reason: For aPTT 35 to 45 seconds Heparin Sodium (Porcine) (Heparin -) 8,300 unit 80 unit/kg (8300 unit) IVPUSH PRN PRN PRN Reason: aPTT <35 seconds Heparin Sodium/Dextrose (Heparin Infusion -) 25,000 units in 500 mls @ 37.166 mls/hr IVPB TITR [facility]; Protocol Last Admin: 01/03/20 19:45 Dose: 13.27 units/kg/hr, 27.4 mls/hr Documented by: Insulin Aspart (Novolog Vial Sliding Scale -) 1 vial SQ ACHS [facility]; Protocol Last Admin: 01/04/20 06:58 Dose: Not Given Documented by: Lisinopril (Prinivil) 2.5 mg PO DAILY [facility] Last Admin: 01/03/20 09:10 Dose: 2.5 mg Documented by: Metformin HCl (Glucophage -) 500 mg PO BID@0700,1630 [facility] Last Admin: 01/03/20 06:20 Dose: Not Given Documented by: Pantoprazole Sodium (Protonix -) 40 mg PO DAILY [facility] Last Admin: 01/03/20 09:10 Dose: 40 mg Documented by: Sitagliptin Phosphate (Januvia -) 100 mg PO DAILY@0700 [facility] Last Admin: 01/04/20 06:57 Dose: 100 mg Documented by: - Objective Vital Signs: Vital Signs Temperature 98.5 F 01/04/20 05:27 Pulse Rate 81 01/04/20 05:27 Respiratory Rate 20 01/04/20 05:27 Blood Pressure 108/59 L 01/04/20 05:27 O2 Sat by Pulse Oximetry (%) 98 01/03/20 21:00 Constitutional: Yes: Well Nourished, Calm Eyes: Yes: WNL HENT: Yes: WNL Neck: Yes: WNL Cardiovascular: Yes: Regular Rate and Rhythm, S1, S2 Respiratory: Yes: CTA Bilaterally Gastrointestinal: Yes: Normal Bowel Sounds, Soft Extremities: Yes: Erythema, Other (LLE SWELLING) Edema: No Labs: CBC, BMP Assessment/Plan Problem List - Problems (1) CAD (coronary artery disease) Code(s): I25.10 - ATHSCL HEART DISEASE OF [place] CORONARY ARTERY W/O ANG PCTRS (2) Diabetes Code(s): E11.9 - TYPE 2 DIABETES MELLITUS WITHOUT COMPLICATIONS (3) HLD (hyperlipidemia) Code(s): E78.5 - HYPERLIPIDEMIA, UNSPECIFIED (4) HTN (hypertension) Code(s): I10 - ESSENTIAL (PRIMARY) HYPERTENSION (5) Left leg DVT Code(s): I82.402 - ACUTE EMBOLISM AND THOMBOS UNSP DEEP VEINS OF L LOW EXTREM (6) Bilateral pulmonary embolism Code(s): I26.99 - OTHER PULMONARY EMBOLISM WITHOUT ACUTE COR PULMONALE Assessment/Plan IV HEPARIN TRANSITION TO [facility] OOB TO CHAIR CHECK CBC STOOL GUAIC HEME WORKUP FOR HYPERCOAGULABLE STATE DR MILLER
[2020-01-04 07:53] LABS: HEMATOCRIT 34.9 % (35.4-49); MCHC 34.4 g/dl (32.0-35.9); MEAN CELL VOLUME 84.4 fl (80-96); MEAN PLT VOLUME 8.7 fl (7.5-11.1); PLATELET COUNT 138 K/MM3 (134-434); RBC 4.14 M/mm3 (4.00-5.60); RDW 13.5 % (11.9-15.9); WHITE BLOOD COUNT 5.3 K/mm3 (4.0-10.0)
--- NOTE | 2020-01-04 10:38 | PN ---
Progress Note, Physician Chief Complaint: DVT LLE PE History of Present Illness: Previous notes and events reviewed awake and alert NAD denies chest pain or palpitations denies SOB or dyspnea on exertion - Current Medication List Current Medications: Active Medications Acetaminophen (Tylenol -) 650 mg PO Q6H PRN PRN Reason: PAIN LEVEL 1-5 Last Admin: 01/02/20 19:52 Dose: 650 mg Documented by: Aspirin (Ecotrin -) 81 mg PO DAILY [facility] Last Admin: 01/03/20 09:13 Dose: 81 mg Documented by: Atorvastatin Calcium (Lipitor -) 20 mg PO HS [facility] Last Admin: 01/03/20 21:36 Dose: 20 mg Documented by: Glimepiride (Amaryl -) 2 mg PO DAILY@0700 [facility] Last Admin: 01/04/20 06:57 Dose: 2 mg Documented by: Heparin Sodium (Porcine) (Heparin -) 4,100 unit 40 unit/kg (4100 unit) IVPUSH PRN PRN PRN Reason: For aPTT 35 to 45 seconds Heparin Sodium (Porcine) (Heparin -) 8,300 unit 80 unit/kg (8300 unit) IVPUSH PRN PRN PRN Reason: aPTT <35 seconds Heparin Sodium/Dextrose (Heparin Infusion -) 25,000 units in 500 mls @ 37.166 mls/hr IVPB TITR [facility]; Protocol Last Admin: 01/03/20 19:45 Dose: 13.27 units/kg/hr, 27.4 mls/hr Documented by: Insulin Aspart (Novolog Vial Sliding Scale -) 1 vial SQ ACHS [facility]; Protocol Last Admin: 01/04/20 06:58 Dose: Not Given Documented by: Lisinopril (Prinivil) 2.5 mg PO DAILY [facility] Last Admin: 01/03/20 09:10 Dose: 2.5 mg Documented by: Metformin HCl (Glucophage -) 500 mg PO BID@0700,1630 [facility] Last Admin: 01/03/20 06:20 Dose: Not Given Documented by: Pantoprazole Sodium (Protonix -) 40 mg PO DAILY [facility] Last Admin: 01/03/20 09:10 Dose: 40 mg Documented by: Sitagliptin Phosphate (Januvia -) 100 mg PO DAILY@0700 [facility] Last Admin: 01/04/20 06:57 Dose: 100 mg Documented by: - Objective Vital Signs: Vital Signs Temperature 98.5 F 01/04/20 05:27 Pulse Rate 81 01/04/20 05:27 Respiratory Rate 20 01/04/20 05:27 Blood Pressure 108/59 L 01/04/20 05:27 O2 Sat by Pulse Oximetry (%) 98 01/03/20 21:00 Constitutional: Yes: No Distress, Calm Eyes: Yes: Conjunctiva Clear Cardiovascular: Yes: Regular Rate and Rhythm Respiratory: Yes: Regular, CTA Bilaterally Gastrointestinal: Yes: Normal Bowel Sounds, Soft Musculoskeletal: Yes: WNL Extremities: Yes: WNL Edema: Yes (LLE) Neurological: Yes: Alert, Oriented Psychiatric: Yes: Alert, Oriented Labs: CBC, BMP 01/04/20 06:20 01/02/20 05:40 INR, PTT INR 1.12 (0.83-1.09) H 01/02/20 05:40 Problem List - Problems (1) Bilateral pulmonary embolism Assessment/Plan: Pulmonary on board Vascular Study LLE shows extensive nearly obstructive LLE DVT extending from the proximal left superficial femoral vein through the popliteal vein with minimal to no flow seen Chest CT shows acute bilateral PE pending Factor V Leiden and Protein S lab result Will discontinue Heparin drip Start on Eliquis 10mg BID x 7 days then will start on ELiquis 5mg BID and continue Code(s): I26.99 - OTHER PULMONARY EMBOLISM WITHOUT ACUTE COR PULMONALE (2) DVT (deep venous thrombosis) Assessment/Plan: Pulmonary on board Vascular Study LLE shows extensive nearly obstructive LLE DVT extending from the proximal left superficial femoral vein through the popliteal vein with minimal to no flow seen Chest CT shows acute bilateral PE pending Factor V Leiden and Protein S lab result Will discontinue Heparin drip Start on Eliquis 10mg BID x 7 days then will start on ELiquis 5mg BID and continue Code(s): I82.409 - ACUTE EMBOLISM AND THOMBOS UNSP DEEP VN UNSP LOWER EXTREMITY (3) Diabetes Assessment/Plan: Endocrinology on board Diabetic diet BGM q6h Amaryl, Metformin, Januvia ISS HgA1c 7.0% Code(s): E11.9 - TYPE 2 DIABETES MELLITUS WITHOUT COMPLICATIONS (4) HLD (hyperlipidemia) Assessment/Plan: Atorvastatin Code(s): E78.5 - HYPERLIPIDEMIA, UNSPECIFIED (5) HTN (hypertension) Assessment/Plan: Lisinopril monitor BP q4h Code(s): I10 - ESSENTIAL (PRIMARY) HYPERTENSION Assessment/Plan see problem list
[2020-01-04] MEDS: ASPIRIN COATED 81 MG TABLET.EC PO SCH (10:46)
[2020-01-04] MEDS: LISINOPRIL 5 MG TABLET PO SCH (10:46)
[2020-01-04] MEDS: PANTOPRAZOLE 40 MG TABLET PO SCH (10:46)
[2020-01-04] MEDS: ACETAMINOPHEN 325 MG TABLET (FP) PO PRN (16:16)
[2020-01-04] MEDS: ATORVASTATIN CA 20 MG TABLET (FP) PO SCH (22:50)
[2020-01-04] MEDS: APIXABAN 5 MG TABLET PO SCH (22:50)
[2020-01-05 06:58] LABS: HEMATOCRIT 35.4 % (35.4-49); HEMOGLOBIN 12.3 GM/dL (11.7-16.9); MCH 29.4 pg (25.7-33.7); MCHC 34.6 g/dl (32.0-35.9); MEAN PLT VOLUME 8.3 fl (7.5-11.1); PLATELET COUNT 146 K/MM3 (134-434); RBC 4.17 M/mm3 (4.00-5.60); RDW 13.5 % (11.9-15.9); WHITE BLOOD COUNT 5.8 K/mm3 (4.0-10.0)
[2020-01-05 07:24] LABS: ALBUMIN 3.4 g/dl (3.4-5.0); BLOOD UREA NITROGEN 14.2 mg/dL (7-18); CALCIUM 8.7 mg/dL (8.5-10.1); CREATININE 0.8 mg/dL (0.55-1.3)
[2020-01-05 07:26] LABS: BILIRUBIN,TOTAL 1.2 mg/dL (0.2-1); TOT PROT 6.1 g/dl (6.4-8.2)
[2020-01-05] MEDS ORDERED: PT OWN MED DRAWER 7, Y5N ONE (08:18)
[2020-01-05] MEDS: INSULIN SLIDING SCALE (NOVOLOG) 1 VIAL SQ SCH (08:19)
[2020-01-05] MEDS: GLIMEPIRIDE 2 MG TABLET PO SCH (08:28)
--- NOTE | 2020-01-05 09:42 | PN ---
Progress Note, Physician - Current Medication List Current Medications: Active Medications Acetaminophen (Tylenol -) 650 mg PO Q6H PRN PRN Reason: PAIN LEVEL 1-5 Last Admin: 01/04/20 16:16 Dose: 650 mg Documented by: Apixaban (Eliquis -) 10 mg PO BID [facility] Stop: 01/11/20 21:59 Last Admin: 01/04/20 22:50 Dose: 10 mg Documented by: Aspirin (Ecotrin -) 81 mg PO DAILY [facility] Last Admin: 01/04/20 10:46 Dose: 81 mg Documented by: Atorvastatin Calcium (Lipitor -) 20 mg PO HS [facility] Last Admin: 01/04/20 22:50 Dose: 20 mg Documented by: Glimepiride (Amaryl -) 2 mg PO DAILY@0700 [facility] Last Admin: 01/05/20 08:28 Dose: 2 mg Documented by: Insulin Aspart (Novolog Vial Sliding Scale -) 1 vial SQ [facility]; Protocol Last Admin: 01/05/20 08:19 Dose: Not Given Documented by: Lisinopril (Prinivil) 2.5 mg PO DAILY [facility] Last Admin: 01/04/20 10:46 Dose: 2.5 mg Documented by: Metformin HCl (Glucophage -) 500 mg PO BID@0700,1630 [facility] Last Admin: 01/03/20 06:20 Dose: Not Given Documented by: Pantoprazole Sodium (Protonix -) 40 mg PO DAILY [facility] Last Admin: 01/04/20 10:46 Dose: 40 mg Documented by: Sitagliptin Phosphate (Januvia -) 100 mg PO DAILY@0700 [facility] Last Admin: 01/05/20 08:20 Dose: 100 mg Documented by: - Objective Vital Signs: Vital Signs Temperature 97.8 F 01/05/20 06:00 Pulse Rate 69 01/05/20 06:00 Respiratory Rate 20 01/05/20 06:00 Blood Pressure 119/66 01/05/20 06:00 O2 Sat by Pulse Oximetry (%) 94 L 01/05/20 06:00 Labs: CBC, BMP 01/05/20 06:03 01/05/20 06:03 INR, PTT INR 1.12 (0.83-1.09) H 01/02/20 05:40 Problem List - Problems (1) Bilateral pulmonary embolism Code(s): I26.99 - OTHER PULMONARY EMBOLISM WITHOUT ACUTE COR PULMONALE (2) DVT (deep venous thrombosis) Code(s): I82.409 - ACUTE EMBOLISM AND THOMBOS UNSP DEEP VN UNSP LOWER EXTREMITY (3) Diabetes Code(s): E11.9 - TYPE 2 DIABETES MELLITUS WITHOUT COMPLICATIONS (4) HLD (hyperlipidemia) Code(s): E78.5 - HYPERLIPIDEMIA, UNSPECIFIED (5) HTN (hypertension) Code(s): I10 - ESSENTIAL (PRIMARY) HYPERTENSION
[2020-01-05] MEDS: APIXABAN 5 MG TABLET PO SCH (09:53)
[2020-01-05] MEDS: PANTOPRAZOLE 40 MG TABLET PO SCH (09:53)
[2020-01-05] MEDS: ASPIRIN COATED 81 MG TABLET.EC PO SCH (09:53)
[2020-01-05] MEDS: LISINOPRIL 5 MG TABLET PO SCH (09:53)
--- NOTE | 2020-01-05 11:21 | DS ---
Physical Examination Vital Signs: Vital Signs Temperature 97.8 F 01/05/20 06:00 Pulse Rate 69 01/05/20 06:00 Respiratory Rate 20 01/05/20 06:00 Blood Pressure 119/66 01/05/20 06:00 O2 Sat by Pulse Oximetry (%) 94 L 01/05/20 06:00 Findings/Remarks: Patient is alert and oriented x 3, NAD. Denies chest pain or palpitations. Denies SOB or dyspnea on exertion. Constitutional: Yes: No Distress, Calm Eyes: Yes: Conjunctiva Clear HENT: Yes: Atraumatic Cardiovascular: Yes: Regular Rate and Rhythm Respiratory: Yes: Regular, CTA Bilaterally Gastrointestinal: Yes: Normal Bowel Sounds, Soft Musculoskeletal: Yes: WNL Extremities: Yes: Calf Tenderness (LLE) Edema: Yes (LLE) Neurological: Yes: Alert, Oriented Psychiatric: Yes: Alert, Oriented Labs: CBC, BMP 01/05/20 06:03 01/05/20 06:03 Laboratory Last Values WBC 5.8 K/mm3 (4.0-10.0) 01/05/20 06:03 RBC 4.17 M/mm3 (4.00-5.60) 01/05/20 06:03 Hgb 12.3 GM/dL (11.7-16.9) 01/05/20 06:03 Hct 35.4 % (35.4-49) 01/05/20 06:03 MCV 85.0 fl (80-96) 01/05/20 06:03 MCH 29.4 pg (25.7-33.7) 01/05/20 06:03 MCHC 34.6 g/dl (32.0-35.9) 01/05/20 06:03 RDW 13.5 % (11.9-15.9) 01/05/20 06:03 Plt Count 146 K/MM3 (134-434) 01/05/20 06:03 MPV 8.3 fl (7.5-11.1) 01/05/20 06:03 Absolute Neuts (auto) 4.0 K/mm3 (1.5-8.0) 01/02/20 05:40 Neutrophils % 66.1 % (42.8-82.8) D 01/02/20 05:40 Lymphocytes % 21.7 % (8-40) D 01/02/20 05:40 Monocytes % 7.2 % (3.8-10.2) 01/02/20 05:40 Eosinophils % 4.2 % (0-4.5) D 01/02/20 05:40 Basophils % 0.8 % (0-2.0) 01/02/20 05:40 Nucleated RBC % 0 % (0-0) 01/02/20 05:40 PT with INR 13.20 SEC (9.7-13.0) H 01/02/20 05:40 INR 1.12 (0.83-1.09) H 01/02/20 05:40 PTT (Actin FS) 32.3 SECONDS (25.2-36.5) 01/05/20 06:03 Sodium 140 mmol/L (136-145) 01/05/20 06:03 Potassium 4.0 mmol/L (3.5-5.1) 01/05/20 06:03 Chloride 106 mmol/L (98-107) 01/05/20 06:03 Carbon Dioxide 27 mmol/L (21-32) 01/05/20 06:03 Anion Gap 7 MMOL/L (8-16) L 01/05/20 06:03 BUN 14.2 mg/dL (7-18) 01/05/20 06:03 Creatinine 0.8 mg/dL (0.55-1.3) 01/05/20 06:03 Est GFR (CKD-EPI)AfAm 108.65 01/05/20 06:03 Est GFR (CKD-EPI)NonAf 93.74 01/05/20 06:03 POC Glucometer 132 UNITS (80-120) 01/05/20 05:07 Random Glucose 144 mg/dL (74-106) H 01/05/20 06:03 Hemoglobin A1c % 7.0 % (4.2-6.3) H 01/02/20 05:40 Calcium 8.7 mg/dL (8.5-10.1) 01/05/20 06:03 Phosphorus 3.4 mg/dL (2.5-4.9) 01/02/20 05:40 Magnesium 1.9 mg/dL (1.8-2.4) 01/02/20 05:40 Total Bilirubin 1.2 mg/dL (0.2-1) H 01/05/20 06:03 AST 15 U/L (15-37) 01/05/20 06:03 ALT 18 U/L (13-61) 01/05/20 06:03 Alkaline Phosphatase 73 U/L (45-117) 01/05/20 06:03 Creatine Kinase 60 U/L (26-308) 01/01/20 16:50 Troponin I < 0.02 ng/ml (0.00-0.05) 01/02/20 02:20 B-Natriuretic Peptide 632.4 pg/ml (5-125) H 01/02/20 05:40 Total Protein 6.1 g/dl (6.4-8.2) L 01/05/20 06:03 Albumin 3.4 g/dl (3.4-5.0) 01/05/20 06:03 Triglycerides 122 mg/dL (0-150) 01/02/20 05:40 Cholesterol 165 mg/dL (50-200) 01/02/20 05:40 Total LDL Cholesterol 108 mg/dL (5-100) H 01/02/20 05:40 HDL Cholesterol 47 mg/dL (40-60) 01/02/20 05:40 TSH 2.78 uIU/ml (0.358-3.74) 01/02/20 05:40 Stool Occult Blood Negative (NEGATIVE) 01/04/20 09:25 COVID-19 (JU) Not detected (Not Detected) 01/01/20 23:05 Discharge Summary Problems reviewed: Yes Reason For Visit: DEEP VEIN THROMBOSIS (DVT) PULMONARY EMBOLISM Current Active Problems Bilateral pulmonary embolism (Acute) CAD (coronary artery disease) (Acute) DVT (deep venous thrombosis) (Acute) Diabetes (Acute) HLD (hyperlipidemia) (Acute) HTN (hypertension) (Acute) Left leg DVT (Acute) Pulmonary embolism (Acute) Swelling of lower leg (Acute) Hospital Course: Patient is a 64 y/o male that was sent to [facility] ER for complaints of pain and swelling to LLE. In ER Vascular US LLE done and shows extensive nearly obstructive LLE DVT extending from the proximal left superficial femoral vein through the popliteal vein with minimal to no flow seen. Due to extent of thrombus in LLE a Chest CT scan was ordered and showed acute bilateral PE. Patient was started on Heparin drip and Pulmonary was consulted. He tolerated Heparin drip and was later started on Eliquis 10mg PO BID on 01/04/20. He had not other acute events since admission and is cleared for discharge. Condition: Guarded - Instructions Diet, Activity, Other Instructions: Patient will be discharged home on ELiquis 10mg PO BID x 6 days. After 6 days start on 5mg twice a day. Follow up with PCP 48hrs after discharge Follow up with Pulmonary Dr Echeverria Instructed to monitor for s/s of bleeding. Instructed that if fall and hits head due to being on blood thinners he will need to go to ER for further evaluation. Return to ER if develop severe pain, chest pain, respiratory distress Referrals: Ramiro Montoya MD [Primary Care Provider] - Disposition: HOME - Home Medications Comprehensive Discharge Medication List: Ambulatory Orders Aspirin [Ecotrin] 81 mg PO DAILY 01/09/15 Glimepiride 2 mg PO BID 01/09/15 Lisinopril [Prinivil] 2.5 mg PO DAILY 01/09/15 Multivit-Mins/Iron/Folic/Lycop [Centrum Men's Tablet] 1 tab PO DAILY 01/09/15 Simvastatin 40 mg PO DAILY 01/09/15 metFORMIN HCL [Metformin HCl] 1,000 mg PO BID 01/09/15 Meloxicam [Mobic] 15 mg PO DAILY 01/01/20 Pantoprazole Sodium [Protonix] 40 mg PO DAILY 01/01/20 Sitagliptin Phosphate [Januvia] 100 mg PO DAILY 01/01/20
--- NOTE | 2020-01-05 11:23 | PN ---
Progress Note (short form) - Note Progress Note: PULMONARY Breathing better. Still with left leg pain but able to ambulate. Vital Signs Period Temp Pulse Resp BP Sys/Kaplan Pulse Ox Last 24 Hr 97 F-98.7 F 69-87 18-20 112-153/66-82 94-99 Gen: NAD at rest Heart: RRR Lung: decreased breath sounds at the bases Abd: soft, nontender Ext: no edema CBC, BMP 01/05/20 06:03 01/05/20 06:03 Active Medications Acetaminophen (Tylenol -) 650 mg PO Q6H PRN PRN Reason: PAIN LEVEL 1-5 Last Admin: 01/04/20 16:16 Dose: 650 mg Documented by: Apixaban (Eliquis -) 10 mg PO BID [facility] Stop: 01/11/20 21:59 Last Admin: 01/05/20 09:53 Dose: 10 mg Documented by: Aspirin (Ecotrin -) 81 mg PO DAILY [facility] Last Admin: 01/05/20 09:53 Dose: 81 mg Documented by: Atorvastatin Calcium (Lipitor -) 20 mg PO HS [facility] Last Admin: 01/04/20 22:50 Dose: 20 mg Documented by: Glimepiride (Amaryl -) 2 mg PO DAILY@0700 [facility] Last Admin: 01/05/20 08:28 Dose: 2 mg Documented by: Insulin Aspart (Novolog Vial Sliding Scale -) 1 vial SQ [facility]; Protocol Last Admin: 01/05/20 08:19 Dose: Not Given Documented by: Lisinopril (Prinivil) 2.5 mg PO DAILY [facility] Last Admin: 01/05/20 09:53 Dose: 2.5 mg Documented by: Metformin HCl (Glucophage -) 500 mg PO BID@0700,1630 [facility] Last Admin: 01/03/20 06:20 Dose: Not Given Documented by: Pantoprazole Sodium (Protonix -) 40 mg PO DAILY [facility] Last Admin: 01/05/20 09:53 Dose: 40 mg Documented by: Sitagliptin Phosphate (Januvia -) 100 mg PO DAILY@0700 [facility] Last Admin: 01/05/20 08:20 Dose: 100 mg Documented by: A/P Acute Pulmonary Emboli LLE DVT CAD HTN DM Hyperlipidemia - continue eliquis - outpt f/u - can be discharged from pulmonary standpoint
[2020-01-05 13:47] VITALS: BP 131/75; PULSE 80; TEMP 97.6
== END 2020-01-05 13:02 | disposition home or self-care (01) | DRG 299 ==
LOC: JER 15:07 → JERBED 21:36 → J4W 23:51
PROVIDERS: ADMIT Student in an Organized Health Care Education/Training Program; ATTEND Family Medicine
DX: I82.412 Acute embolism and thrombosis of left femoral vein (principal); I26.99 Other pulmonary embolism without acute cor pulmonale; I25.10 Atherosclerotic heart disease of native coronary artery without angina pectoris; Z95.5 Presence of coronary angioplasty implant and graft; I10 Essential (primary) hypertension; E78.5 Hyperlipidemia, unspecified; E11.9 Type 2 diabetes mellitus without complications; M47.9 Spondylosis, unspecified; Z88.0 Allergy status to penicillin
CPT/HCPCS: 36415; 71275-TC; 80053; 80061; 81241; 82272; 82550; 82962; 83036; 83721; 83735; 83880; 84100; 84443; 84484; 85025; 85027; 85303; 85306; 85610; 85730; 93005; 93010; 93306-TC; 93971-TC; 99285-25; J1644; Q9967; U0003

== ENCOUNTER 2020-07-15 04:25 | Day surgery (SDC) | payer OTHER ==
[2020-07-10 16:50] VITALS: BMI 31.4
[2020-07-15] MEDS ORDERED: ROPIVACAINE HCL 0.5% 30ML VIAL ONE (08:48)
[2020-07-15] MEDS ORDERED: MIDAZOLAM HCL 2 MG/2 ML SINGLE DOSE VIAL ONE ×4 (08:49→09:33)
[2020-07-15] MEDS ORDERED: PROPOFOL 20 ML ONE (09:14)
[2020-07-15] MEDS ORDERED: ceFAZolin SODIUM 1 GM VIAL IVPB ONE (09:35)
[2020-07-15] MEDS ORDERED: oxyCODONE HCL 5 MG TABLET PO PRN (10:33)
[2020-07-15] MEDS ORDERED: ONDANSETRON 4 MG/2 ML VIAL IVPUSH PRN (10:33)
[2020-07-15] MEDS ORDERED: LACTATED RINGERS SOLUTION 1,000 ML IV SCH (10:45)
[2020-07-15 11:39] VITALS: BP 120/61; PULSE 65; TEMP 97.7
== END 2020-07-15 12:45 | disposition home or self-care (01) ==
LOC: JASU-SURG 04:25
PROVIDERS: ATTEND Orthopaedic Surgery
PROC: 0RNK4ZZ Release Left Shoulder Joint, Percutaneous Endoscopic Approach (ICD-10-PCS; 2020-07-15)
PROC: 0LM24ZZ Reattachment of Left Shoulder Tendon, Percutaneous Endoscopic Approach (ICD-10-PCS; principal; 2020-07-15 08:45)
PROC: 0RHK44Z Insertion of Internal Fixation Device into Left Shoulder Joint, Percutaneous Endoscopic Approach (ICD-10-PCS; 2020-07-15 08:45)
DX: M75.122 Complete rotator cuff tear or rupture of left shoulder, not specified as traumatic (principal); M75.42 Impingement syndrome of left shoulder
CPT/HCPCS: 29826; 29827; C1713; 82962; 88304-TC; 94760

== ENCOUNTER 2021-06-03 10:26 | Day surgery (SDC) | payer OTHER ==
[2021-06-03] MEDS ORDERED: IRON SUCROSE INJECTION 200 MG/100 ML BAG IVPB ONE (11:30)
[2021-06-03 12:58] VITALS: BP 135/62; PULSE 65; TEMP 98.3
== END 2021-06-03 13:15 | disposition home or self-care (01) ==
LOC: FINFUSION 10:26 → FM/S 10:31 → FINFUSION 13:15
PROVIDERS: ATTEND Family Medicine
PROC: 3E033GC Introduction of Other Therapeutic Substance into Peripheral Vein, Percutaneous Approach (ICD-10-PCS; principal; 2021-06-03)
DX: D50.9 Iron deficiency anemia, unspecified (principal)
CPT/HCPCS: 96365; J1756

== ENCOUNTER 2021-06-10 10:15 | Day surgery (SDC) | payer OTHER ==
[2021-06-10] MEDS ORDERED: IRON SUCROSE INJECTION 200 MG/100 ML BAG IVPB ONE (11:15)
[2021-06-10 12:05] VITALS: BP 120/58; PULSE 72; TEMP 98.2
== END 2021-06-10 12:26 | disposition home or self-care (01) ==
LOC: FINFUSION 10:15 → FM/S 10:21 → FINFUSION 12:26
PROVIDERS: ATTEND Family Medicine
PROC: 3E033GC Introduction of Other Therapeutic Substance into Peripheral Vein, Percutaneous Approach (ICD-10-PCS; principal; 2021-06-10)
DX: D50.9 Iron deficiency anemia, unspecified (principal)
CPT/HCPCS: 96365; J1756

== ENCOUNTER 2023-11-13 04:04 | Day surgery (SDC) | payer OTHER ==
[2023-11-10 13:32] VITALS: BMI 29.4
[2023-11-13 07:05] VITALS: RESP 18
[2023-11-13] MEDS ORDERED: MIDAZOLAM HCL 2 MG/2 ML SINGLE DOSE VIAL ONE (08:02)
[2023-11-13] MEDS ORDERED: ONDANSETRON 4 MG/2 ML VIAL ONE (08:03)
[2023-11-13 13:46] VITALS: BP 133/89; PULSE 60; TEMP 97.8
== END 2023-11-13 13:15 | disposition home or self-care (01) ==
LOC: JASU-SURG 04:04
PROVIDERS: ATTEND Urology
PROC: 0TF4XZZ Fragmentation in Left Kidney Pelvis, External Approach (ICD-10-PCS; principal; 2023-11-13 09:00)
DX: N20.0 Calculus of kidney (principal)
CPT/HCPCS: 82962

== ENCOUNTER 2024-04-16 04:08 | Day surgery (SDC) | payer OTHER ==
[2024-04-08 15:30] VITALS: BMI 28.8
[2024-04-16] MEDS: cefOXitin SODIUM 2 GM VIAL (RESTRICTED TO ID) IVPB ONE
[2024-04-16] MEDS ORDERED: HEPARIN NA (PORCINE) 5,000 UNITS/ML 1ML VIAL ONE (07:16)
[2024-04-16] MEDS ORDERED: INDOCYANINE GREEN 25 MG/10 ML VIAL IVPUSH ONE (07:16)
[2024-04-16] MEDS ORDERED: BUPIVACAINE HCL/PF 0.25% (2.5MG/ML) 10 ML VIAL ONE (07:16)
[2024-04-16] MEDS ORDERED: SUGAMMADEX SODIUM 200 MG/2 ML VIAL ONE (07:58)
[2024-04-16] MEDS ORDERED: PROPOFOL 40 ML ONE (07:58)
[2024-04-16] MEDS ORDERED: MIDAZOLAM HCL 2 MG/2 ML SINGLE DOSE VIAL ONE (07:59)
[2024-04-16] MEDS ORDERED: ROCURONIUM BROMIDE 50 MG/5 ML SYRINGE ONE (07:59)
[2024-04-16] MEDS ORDERED: SUCCINYLCHOLINE CHLORIDE 200 MG/10 ML SYRINGE ONE (07:59)
[2024-04-16] MEDS ORDERED: LIDOCAINE HCL/PF 2% SDV 5ML VIAL ONE (08:00)
[2024-04-16] MEDS: ceFAZolin SODIUM 1 GM VIAL IVPB ONE (08:25)
[2024-04-16] MEDS: BUPIVACAINE HCL/PF 0.25% (2.5MG/ML) 10 ML VIAL IJ ONE ×2 (08:43)
[2024-04-16] MEDS ORDERED: oxyCODONE HCL 5 MG TABLET PO PRN (09:33)
[2024-04-16] MEDS: ACETAMINOPHEN 1000 MG/100 ML BAG IVPB ONE (09:52)
[2024-04-16] MEDS: LACTATED RINGERS SOLUTION 1,000 ML IV SCH (10:45)
[2024-04-16] MEDS ORDERED: ONDANSETRON 4 MG/2 ML VIAL ONE (11:25)
[2024-04-16] MEDS: ONDANSETRON 4 MG/2 ML VIAL IVPUSH PRN (11:31)
[2024-04-16] MEDS: ACETAMINOPHEN INJECTION 100 ML ONE (11:31)
[2024-04-16 12:05] VITALS: PULSE 66; RESP 18
[2024-04-16 15:19] VITALS: BP 160/67; TEMP 97.7
== END 2024-04-16 14:15 | disposition home or self-care (01) ==
LOC: JASU-SURG 04:08
PROVIDERS: ATTEND Surgery
PROC: 0FT44ZZ Resection of Gallbladder, Percutaneous Endoscopic Approach (ICD-10-PCS; principal; 2024-04-16 08:00)
DX: K82.4 Cholesterolosis of gallbladder (principal)
CPT/HCPCS: 82962; 88304-TC; 94760; J0131; J1644